=== PATIENT | male | born 1995 | race Caucasian/White ===

== ENCOUNTER 2024-01-31 18:20 | Outpatient (CLI) | payer OTHER, BC | END 2024-01-31 18:21 | disposition EMS.NT | LOC: EMS 18:20 | DX: S80.11XA Contusion of right lower leg, initial encounter (principal); V48.5XXA Car driver injured in noncollision transport accident in traffic accident, initial encounter; Y92.414 Local residential or business street as the place of occurrence of the external cause ==

== ENCOUNTER 2024-01-31 20:07 | Emergency (ER) | payer OTHER, BC ==
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
[2024-01-31] MEDS: ACETAMINOPHEN 325 MG TABLET PO STA (22:25)
[2024-01-31 22:42] VITALS: BP 166/90; O2SAT 98
== END 2024-01-31 22:35 | disposition home or self-care (01) ==
LOC: ED 20:07
DX: S09.90XA Unspecified injury of head, initial encounter (principal); M79.672 Pain in left foot; T14.8XXA Other injury of unspecified body region, initial encounter; V89.2XXA Person injured in unspecified motor-vehicle accident, traffic, initial encounter; Y92.410 Unspecified street and highway as the place of occurrence of the external cause; I10 Essential (primary) hypertension
CPT/HCPCS: 70450; 72100; 73060; 73552; 73630; 99284; A9270